=== PATIENT | male | born 1975 | race Caucasian/White ===

== ENCOUNTER 2017-07-14 11:07 | Observation (INO) ==
[2017-07-14] MEDS: 0.45 % SODIUM CHLORIDE 1,000 ML IV SCH ×2 (11:30→22:17)
[2017-07-14 12:15] LABS: Basophils # (Auto) 0 K/mcL (0.0-0.3); Basophils % (Auto) 0.2 % (0.0-2.0); Eosinophils # (Auto) 0.3 K/mcL (0.0-0.7); Eosinophils % (Auto) 4.1 % (0.0-7.0); Granulocytes % (Auto) 81.1 % (38.0-78.0); Lymphocytes # (Auto) 0.8 K/mcL (1.5-4.8); Lymphocytes % (Auto) 9.9 % (15.5-49.0); Mean Cell Volume 83.2 fL (80.0-100.0); Mean Corpuscular HGB Conc 34.7 g/dL (31.0-36.0); Mean Corpuscular Hemoglobin 28.9 pg (26.0-34.0); Monocytes # (Auto) 0.4 K/mcL (0.1-0.9); Monocytes % (Auto) 4.7 % (1.0-12.0); Platelet Count 302 K/mcL (140-440); RBC 4.06 M/mcL (4.50-5.90); Red Cell Distribution Width 12.7 % (11.5-14.5)
[2017-07-14 12:37] LABS: ALT/SGPT 10 U/l (0-40); Albumin 4.2 gm/dL (3.2-5.2); Albumin/Globulin Ratio 1.6 (1.0-2.3); Alkaline Phosphatase 58 U/L (39-117); Bilirubin,Direct < 0.2 mg/dL (0.0-0.3); Blood Urea Nitrogen 19 mg/dl (6-20); Gamma Glutamyl Transpeptidase 32 U/L (8-61)
[2017-07-14] MEDS ORDERED: ACETAMINOPHEN 325 MG TABLET PO PRN (12:55)
[2017-07-14] MEDS ORDERED: DEXTROSE 50% 50 ML VIAL IV PRN ×2 (13:14→20:42)
[2017-07-14] MEDS ORDERED: DEXTROSE 31 GM ORAL.SUSP PO PRN ×2 (13:14→20:42)
[2017-07-14 13:19] LABS: Appearance,Urine CLEAR; Bacteria,Urine 0 /hpf (0); Bilirubin,Urine NEG (NEG); Color,Urine STRAW; Glucose,Urine (UA) >=500 mg/dL (NEG); Leukocyte Esterase,Urine NEG /uL (NEG); Protein,Urine NEG (NEG); Specific Gravity,Urine 1.006 (1.000-1.035); Urine Blood NEG mg/dL (<0.03); Urine RBC 0 /hpf (0-1); Urine Squamous Epithelial Cell < 1 /hpf (0-4); Urine Transitional Epi Cells < 1 /hpf (0-2); Urine WBC < 1 /hpf (0-4); Urobilinogen,Urine NEG (NEG)
[2017-07-14] MEDS: 0.9 % SODIUM CHLORIDE 10 ML SYRINGE IV SCH ×2 (14:20→21:00)
[2017-07-14] MEDS ORDERED: INSULIN LISPRO 1 UNIT/0.01 ML UNIT SQ SCH (17:00)
--- NOTE | 2017-07-14 17:03 | Nephrology Progress Note ---
Subjective Patient information: Note initiated : 07/14/17 at 4:59 pm Service Date, if different from initiated Date: [] Patient: Marcial Yeager 41 y/o M admitted on 07/14/17 for acute renal failure. Chief Complaint: nausea, vomiting Principal diagnosis: Acute renal failure Interval history: Patient is a 41 y/o male who follows with me for his HTN and CKD stage II He was seen on Tuesday this week for acute renal failure when he refused hospitalisation He has been having nausea, vomiting for 2 weeks and unable to eat much but states keep fluids down His blood glucose continued to run high no abdominal pain, no fever, cough no sick contacts no urinary symptoms His serum creatinine repeated showed no significant improvement, he remained tachycardic and given no significant improvement despite improving fluid intake outpt patient was hospitalised and monitoring of his renal function Pertinent ROS: as above Objective - Vital Signs Vital signs: Vital Signs Temp Pulse Resp BP BP Pulse Ox 07/14/17 16:00 99.2 F H 90 16 132/77 97 07/14/17 11:47 100.0 F H 93 H 16 157/94 100 Intake and Output 07/14/17 07/14/17 07/14/17 05:59 13:59 21:59 Output Total 260 / 260 600 / 600 Balance -260 / -260 -600 / -600 Output: Void Amount 260 / 260 600 / 600 Other: Weight 208 lb 8 oz Patient Weight 07/15/17 05:59 Weight 208 lb 8 oz Intake & Output: Intake & Output 07/14/17 07/14/17 07/14/17 05:59 13:59 21:59 Output Total 260 / 260 600 / 600 Balance -260 / -260 -600 / -600 Weight 208 lb 8 oz Output: Void Amount 260 / 260 600 / 600 - General Appearance General appearance: appears started age EENT: mucous membranes dry Neck: no JVD Respiratory: clear Cardiology: no rub, no edema, normal S1, normal S2 Gastrointestinal: no tenderness, no guarding Integumentary: no rash, warm and dry Neurologic: no focal deficit Musculoskeletal: no erythema, no cyanosis, no clubbing Psychiatric: mood/affect appropriate - Lab 07/14/17 11:35 07/14/17 11:35 Most recent lab results Calcium 9.1 mg/dl (8.6-10.4) 07/14/17 11:35 Phosphorus 1.9 mg/dL (2.7-4.5) L 07/14/17 11:35 Magnesium 2.2 mg/dL (1.6-2.5) 07/14/17 11:35 Assessment and Plan (1) Acute renal failure s.creatinine is up from 1.3 at baseline to 2.4-2.3 when last checked 2.2 today US is normal with no proteinuria, hematuria fena is 0.75 with urine sodium less than 20 confirming pre renal state renal imaging done as outpt was negative in the past, if no significant improvement in renal function with IV fluid with repeat will give normal saline 0.45% saline at 100cc /hour non oliguric BP control fair will hold ACEI and spironolactone until renal function back to baseline important for pt to work on optimal DM control last A1C was 11%, intolerance to multiple meds tried by PCP , would recommend glipizide and levemir or lantus or no renal concerns with using these meds Will follow along Appreciate Dr Olivares's help in managing his other medical co morbidities Status: Acute
--- NOTE | 2017-07-14 19:27 | Internal Med History&Physical ---
Medical - H&P: [facility] Patient information: Note initiated : 07/14/17 at 6:51 pm Service Date, if different from initiated Date: [] Patient: Marcial Yeager a 41 y/o M admitted on 07/14/17 for acute renal failure. Chief Complaint: nausea and vomiting History of present illness: Mr. Yeager is a 41 year old M 41-year-old male, with acute on chronic renal failure after [id number] of nausea and vomiting, admitted for IV hydration. He denies abdominal pain, diarrhea and fever. Patient presented with hypertensive urgency in March 2017 when he presented to his PCP to establish care. He had been diagnosed with HTN and DM a few years earlier. He had stopped his Lisinopril and was lost to medical follow-up. SBP was in 240's. Gluc 341 and GFR 68 with Cr 1.3 in ED. In the last few weeks he has been try on several po diabetic meds, including metformin and Jardiance, causing nausea and abdominal discomfort. He was seen by dr Geronimo and diagnosed with CKD stage 2. No etiology for severe HTN (MRI, TSH, metanephrines, cortisol: wnl). FU labs 07/11 showed Cr increase from 1.3 to 2.3 with decreased in GFR to 34. Amylase/lipase: wnl. - Constitutional Constitutional: Present: anorexia - Cardiovascular Cardiovascular: Absent: chest pain, dyspnea, palpatations - Respiratory Respiratory: Absent: cough, dyspnea - Gastrointestinal Gastrointestinal: Present: nausea, vomiting. Absent: abdominal pain, heartburn - Genitourinary Genitourinary: Absent: dysuria Medical - H&P: PMH Medical history: History of tobacco abuse (Chronic) Chlamydia (Chronic) Hypertension, essential (Chronic) DMII (diabetes mellitus, type 2) (Chronic) Surgical history: None Pertinent family history: Positive for DM Social history: Quit smoking. Alcohol consumption: min, every 2 weeks. 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 use FT employed with insurance company Functional capacity: independent ambulation Smoking status: Former smoker Have you smoked in the last 12 months: No Drug use: none Alcohol use: rarely Medical - H&P: Meds Home Medications Medication Instructions Recorded Confirmed Type amlodipine 10 mg tablet 10 mg PO QHS 04/14/17 07/14/17 History spironolactone 50 mg tablet 50 mg PO QDAY #30 tab 04/15/17 07/14/17 Rx blood sugar diagnostic strips See Dose Instructions .ROUTE 04/26/17 07/14/17 Rx .MEDSUPPLY #100 each lancets 33 gauge See Dose Instructions .ROUTE 06/07/17 07/14/17 Rx .MEDSUPPLY #100 each ondansetron HCl 4 mg tablet 4 mg PO Q6H PRN #30 tab 07/11/17 07/14/17 Rx RX: Lisinopril/Hydrochlorothiazide 1 tab PO QHS 07/14/17 07/14/17 History [Zestoretic 10-12.5 mg Tablet] Allergies Allergy/AdvReac Type Severity Reaction Status Date / Time ibuprofen Allergy Severe Facial Verified 07/14/17 11:25 Swelling Medical - H&P: Exam - Constitutional Vitals: Temp Pulse Resp BP Pulse Ox 99.2 F H 90 16 132/77 97 07/14/17 16:00 07/14/17 16:00 07/14/17 16:00 07/14/17 16:00 07/14/17 16:00 General appearance: average body habitus - Head Head exam: Present: normal inspection - Neck Neck exam: Present: normal inspection - Respiratory Respiratory exam: Present: normal respiratory exam - Cardiovascular Cardiovascular exam: Present: normal rate and rhythm - Extremities Exam Extremities exam: Present: normal inspection Medical - H&P: Reslt - Labs CBC & Chem 7: 07/14/17 11:35 07/14/17 11:35 Labs: Short CBC 07/14/17 Range/Units 11:35 WBC 8.5 (4.5-11.0) K/mcL Hgb 11.7 L (13.5-16.5) g/dL Hct 33.8 L (41.0-55.0) % Plt Count 302 (140-440) K/mcL BMP 07/14/17 11:35 Sodium 136 Potassium 4.2 Chloride 98 Carbon Dioxide 24 BUN 19 Creatinine 2.2 H Glucose 258 H Calcium 9.1 Liver Function 07/14/17 Range/Units 11:35 Total Bilirubin 0.4 (0.0-1.0) mg/dL Direct Bilirubin < 0.2 (0.0-0.3) mg/dL GGT 32 (8-61) U/L AST 12 (0-37) U/l ALT 10 (0-40) U/l Alkaline Phosphatase 58 (39-117) U/L Albumin 4.2 (3.2-5.2) gm/dL Urine 07/14/17 Range/Units 13:00 Urine Color Straw Urine Appearance Clear Urine pH 6.0 (5.0-9.0) Ur Specific [place] 1.006 (1.000-1.035) Urine Protein Neg (NEG) mg/dL Urine Glucose (UA) >=500 A (NEG) mg/dL Medical - H&P: A/P - Narrative A/P Narrative: 41-year-old male admitted with following problems: + Nausea and vomiting x 2 weeks. No evidence of infection/gastro-enteritis. Amylase/lipase: wnl May be medication induced as he has been introduced to different anti- hypertensive and diabetic meds within the last few weeks. + Acute on chronic renal failure vs progression of CKD IVF as per dr Geronimo Aldactone and RUSLAN-inh on hold + HTN Difficult to control, requiring multiple drug-regimen No clear etiology found Continue Amlodipine Hydralazine prn + DM with A1C 11.4 Not tolerating po meds Will start Insulin Patient counseled on healthy lifestyle, incl diet, medical compliance and need for regular exercise. Check lipid profile. Will need statin DVT prophylaxis: ambulation Code status: full
[2017-07-14] MEDS ORDERED: hydrALAZINE 10 MG TABLET PO PRN (19:43)
[2017-07-14] MEDS: INSULIN GLARGINE, HUMAN 1 UNIT/0.01 ML SQ SCH (20:59)
[2017-07-14] MEDS: amLODIPine 10 MG TABLET PO SCH (20:59)
[2017-07-14] MEDS: INSULIN LISPRO 1 UNIT/0.01 ML UNIT SQ SCH (21:13)
[2017-07-15] MEDS: ONDANSETRON 4 MG/2 ML VIAL IV PRN ×2 (04:22→10:22)
[2017-07-15 05:20] LABS: Estimated Average Glucose(eAG) 252 mg/dL; Hemoglobin A1C 10.4 % HGB (4.0-6.0)
[2017-07-15 05:22] LABS: Blood Urea Nitrogen 15 mg/dl (6-20); HDL Cholesterol 32 mg/dl (>40); LDL Cholesterol,Calculated 76 mg/dl (SEE CHART)
[2017-07-15] MEDS: 0.9 % SODIUM CHLORIDE 10 ML SYRINGE IV SCH ×3 (05:22→21:31)
[2017-07-15] MEDS ORDERED: POTASSIUM CHLORIDE 20 MEQ TABLET PO ONE (07:28)
[2017-07-15] MEDS: 0.45 % SODIUM CHLORIDE 1,000 ML IV SCH ×2 (08:25→18:41)
[2017-07-15] MEDS: INSULIN LISPRO 1 UNIT/0.01 ML UNIT SQ SCH ×4 (08:28→21:02)
[2017-07-15] MEDS ORDERED: SPIRONOLACTONE 25 MG TABLET PO SCH (09:00)
[2017-07-15] MEDS ORDERED: LISINOPRIL 10 MG TABLET PO SCH (09:00)
[2017-07-15] MEDS ORDERED: FLU VACC QS2017-18 36MOS UP/PF 60 MCG/0.5 ML SYRINGE IM ONE (10:00)
--- NOTE | 2017-07-15 13:24 | Nephrology Progress Note ---
Subjective Patient information: Note initiated : 07/15/17 at 1:19 pm Service Date, if different from initiated Date: [] Patient: Marcial Yeager 41 y/o M admitted on 07/14/17 for Acute Renal Failure. Chief Complaint: [] Principal diagnosis: Acute renal failure Interval history: patient started having nausea again last night and this am no vomiting, drinking only liquids this am no SOB, CP no edema renal function slowly improving with IVF Pertinent ROS: as above Objective - Vital Signs Vital signs: Vital Signs Temp Pulse Resp BP Pulse Ox 07/15/17 11:50 99 F 90 18 143/84 97 07/15/17 08:00 90 07/15/17 07:39 99 F 18 150/84 98 07/15/17 04:00 97.8 F 79 16 146/89 98 07/14/17 23:10 99.2 F H 18 154/94 99 07/14/17 21:26 80 07/14/17 20:03 99.8 F H 89 18 158/90 98 07/14/17 16:00 99.2 F H 90 16 132/77 97 Intake and Output 07/14/17 07/15/17 07/15/17 21:59 05:59 13:59 Intake Total 1920 / 1920 920 / 920 1240 / 1240 Output Total 1275 / 1275 800 / 800 300 / 300 Balance 645 / 645 120 / 120 940 / 940 Intake: IV 1000 / 1000 1000 / 1000 Sodium Chloride 0.45% 1,000 ml 1000 / 1000 1000 / 1000 @ 100 mls/hr IV .Q10H [facility] Rx#: [id number] Oral 920 / 920 920 / 920 240 / 240 Output: Void Amount 1275 / 1275 800 / 800 300 / 300 Other: Meal Dinner sandwich Breakfast Percent of Meal Consumed 100% 100% liquids. Feeding Ability Independent Stool Consistency Formed Liquid # Bowel Movements 1 Weight 206 lb 206 lb Patient Weight 07/16/17 05:59 Weight 206 lb Intake & Output: Intake & Output 07/14/17 07/15/17 07/15/17 21:59 05:59 13:59 Intake Total 1920 / 1920 920 / 920 1240 / 1240 Output Total 1275 / 1275 800 / 800 300 / 300 Balance 645 / 645 120 / 120 940 / 940 Weight 206 lb 206 lb Intake: IV 1000 / 1000 1000 / 1000 Sodium Chloride 0.45% 1,000 ml 1000 / 1000 1000 / 1000 @ 100 mls/hr IV .Q10H [facility] Rx#: [id number] Oral 920 / 920 920 / 920 240 / 240 Output: Void Amount 1275 / 1275 800 / 800 300 / 300 Other: Meal Dinner sandwich Breakfast Percent of Meal Consumed 100% 100% liquids. Feeding Ability Independent Stool Consistency Formed Liquid # Bowel Movements 1 - General Appearance General appearance: appears started age EENT: mucous membranes moist Neck: no JVD Respiratory: clear Cardiology: no edema, normal S1, normal S2 Gastrointestinal: no tenderness, no guarding Integumentary: warm and dry Neurologic: alert and oriented x3 Musculoskeletal: no erythema Psychiatric: mood/affect appropriate - Lab 07/14/17 11:35 07/15/17 04:05 Most recent lab results Calcium 8.7 mg/dl (8.6-10.4) 07/15/17 04:05 Phosphorus 1.9 mg/dL (2.7-4.5) L 07/14/17 11:35 Magnesium 2.2 mg/dL (1.6-2.5) 07/14/17 11:35 Assessment and Plan (1) Acute renal failure acute renal failure from pre renal state from refractory nausea, poor po intake and uncontrolled blood glucose s.creatinine trending down 1.8 today BP control fair just with amlodipine nausea, vomiting? etiology thought is improved blood glucose control on zofran consider gastroenterology referral, has had uncontrolled DM, ? has gastroparesis ct IVF for another day will hold ACEI and diuretics until GI SYMPTOMS resolve reasonable control of HTN, will not add more meds for now dose meds to egfr, avoid nephrotoxic meds will follow along Status: Acute
--- NOTE | 2017-07-15 14:57 | Internal Med Progress Note ---
Medical - PN: Subj Patient information: Note initiated : 07/15/17 at 2:54 pm Service Date, if different from initiated Date: [] Patient: Marcial Yeager a 41 y/o M admitted on 07/14/17 for Acute Renal Failure. Mr. Yeager is a 41 year old M 41-year-old male, with acute on chronic renal failure after [id number] of nausea and vomiting, admitted for IV hydration. He denies abdominal pain, diarrhea and fever. Patient presented with hypertensive urgency in March 2017 when he presented to his PCP to establish care. He had been diagnosed with HTN and DM a few years earlier. He had stopped his Lisinopril and was lost to medical follow-up. SBP was in 240's. Gluc 341 and GFR 68 with Cr 1.3 in ED. In the last few weeks he has been try on several po diabetic meds, including metformin and Jardiance, causing nausea and abdominal discomfort. He was seen by dr Geronimo and diagnosed with CKD stage 2. No etiology for severe HTN (MRI, TSH, metanephrines, cortisol: wnl). FU labs 07/11 showed Cr increase from 1.3 to 2.3 with decreased in GFR to 34. Amylase/lipase: wnl 07/14: Admitted for IV hydration, BP and DM control 07/15: Nausea, mainly in am. Had hamburger last night without vomiting. Will start ondansetron po ACHS Start diabetic teaching, self-administration of insulin etc. - Constitutional Vitals: Vital Signs Temp Pulse Resp BP Pulse Ox 99 F 90 18 143/84 97 07/15/17 12:00 07/15/17 12:00 07/15/17 12:00 07/15/17 12:00 07/15/17 12:00 Period Temp Pulse Resp BP Sys/Mcmullen Pulse Ox Last 24 Hr 97.8 F-99.8 F 79-90 16-18 132-158/77-94 97-99 Intake and Output 07/15/17 07/15/17 07/15/17 05:59 13:59 21:59 Intake Total 920 / 920 1240 / 1240 400 / 400 Output Total 800 / 800 300 / 300 850 / 850 Balance 120 / 120 940 / 940 -450 / -450 Weight 206 lb Patient Weight 03/03/18 05:59 Weight 206 lb Intake & Output: Intake & Output 07/15/17 07/15/17 07/15/17 05:59 13:59 21:59 Intake Total 920 / 920 1240 / 1240 400 / 400 Output Total 800 / 800 300 / 300 850 / 850 Balance 120 / 120 940 / 940 -450 / -450 Weight 206 lb Intake: IV 1000 / 1000 Sodium Chloride 0.45% 1,000 ml 1000 / 1000 @ 100 mls/hr IV .Q10H [facility] Rx#: [id number] Oral 920 / 920 240 / 240 400 / 400 Output: Void Amount 800 / 800 300 / 300 850 / 850 Other: Meal sandwich Breakfast Lunch Percent of Meal Consumed 100% liquids. 100% Feeding Ability Independent Independent General appearance: no acute distress - Respiratory Respiratory exam: Present: normal respiratory exam - Cardiovascular Cardiovascular exam: Present: normal rate and rhythm - GI/Abdominal GI/Abdominal exam: Present: normal bowel sounds, soft Medical - PN: Obj Da - Labs CBC & Chem 7: 07/14/17 11:35 07/15/17 04:05 Labs: Abnormal Lab Results 07/15/17 07/14/17 07/14/17 04:05 13:00 11:35 RBC Hgb Hct Gran % Lymph % (Auto) Lymph # (Auto) Creatinine 1.8 H 2.2 H Glucose 141 H 258 H Hemoglobin A1c 10.4 H Phosphorus 1.9 L Triglycerides 171 H 214 H HDL Cholesterol 32 L Urine Glucose (UA) >=500 A 07/14/17 11:35 RBC 4.06 L Hgb 11.7 L Hct 33.8 L Gran % 81.1 H Lymph % (Auto) 9.9 L Lymph # (Auto) 0.8 L Creatinine Glucose Hemoglobin A1c Phosphorus Triglycerides HDL Cholesterol Urine Glucose (UA) Meds: Medications Acetaminophen (Tylenol) 650 mg PO Q6HP PRN PRN Reason: PAIN/FEVER > 101 Amlodipine Besylate (Norvasc) 10 mg PO QHS [facility] Last Admin: 07/14/17 20:59 Dose: 10 mg Dextrose (Dextrose 50%) 0 ml IV UD PRN PRN Reason: Hypoglycemia Dextrose (Dextrose 50%) 0 ml IV UD PRN PRN Reason: Hypoglycemia Diagnostic Test (Pha) (Accu-Chek) 1 each FS ACHS [facility] Last Admin: 07/15/17 11:53 Dose: 1 each Glucose (Insta-Glucose) 15 gm PO PRN PRN PRN Reason: Hypoglycemia Glucose (Insta-Glucose) 15 gm PO PRN PRN PRN Reason: Hypoglycemia Hydralazine HCl (Apresoline) 10 mg PO Q4HP PRN PRN Reason: Hypertension Sodium Chloride (Sodium Chloride 0.45%) 1,000 mls @ 100 mls/hr IV .Q10H [facility] Last Admin: 07/15/17 08:25 Dose: 100 mls/hr Insulin Glargine (Lantus) 10 unit SQ HS [facility] Last Admin: 07/14/17 20:59 Dose: 10 unit Insulin Human Lispro (Humalog) 0 unit SQ ACHS [facility] PRN Reason: Protocol Last Admin: 07/15/17 11:53 Dose: 2 unit Ondansetron HCl (Zofran) 4 mg IV Q6HP PRN PRN Reason: Nausea And Vomiting Last Admin: 07/15/17 10:22 Dose: 4 mg Ondansetron HCl (Zofran Odt) 4 mg SL [facility] Sodium Chloride (Saline Flush) 10 ml IV Q8 [facility] Last Admin: 07/15/17 14:19 Dose: Not Given Medical - PN: A/P - Time Spent With Patient Total time spent is greater than 50% in coordination of care (as documented) at patient's floor/unit and/or counseling patient: less than 15 minutes - Narrative A/P Narrative: A/P Narrative: 41-year-old male admitted with following problems: + Nausea and vomiting x 2 weeks. No evidence of infection/gastro-enteritis. Amylase/lipase: wnl May be medication induced as he has been introduced to different anti- hypertensive and diabetic meds within the last few weeks. + Acute on chronic renal failure vs progression of CKD IVF as per dr Geronimo Aldactone and RUSLAN-inh on hold + HTN Difficult to control, requiring multiple drug-regimen No clear etiology found Continue Amlodipine Hydralazine prn + DM with A1C 11.4 Not tolerating po meds Will start Insulin Patient counseled on healthy lifestyle, incl diet, medical compliance and need for regular exercise. Check lipid profile. Will need statin PLAN: Zofran po ACHS Diabetic teaching DVT prophylaxis: ambulation Code status: full
[2017-07-15] MEDS: ONDANSETRON ODT 4 MG TABLET SL SCH ×2 (16:46→21:01)
[2017-07-15] MEDS: INSULIN GLARGINE, HUMAN 1 UNIT/0.01 ML SQ SCH (21:01)
[2017-07-15] MEDS: amLODIPine 10 MG TABLET PO SCH (21:01)
[2017-07-16] MEDS: 0.45 % SODIUM CHLORIDE 1,000 ML IV SCH (04:23)
[2017-07-16] MEDS: 0.9 % SODIUM CHLORIDE 10 ML SYRINGE IV SCH ×2 (05:01→14:00)
[2017-07-16] MEDS: ONDANSETRON ODT 4 MG TABLET SL SCH ×2 (07:15→11:55)
[2017-07-16] MEDS: INSULIN LISPRO 1 UNIT/0.01 ML UNIT SQ SCH ×2 (08:12→11:54)
[2017-07-16 09:21] LABS: ALT/SGPT 11 U/l (0-40); Albumin 4.4 gm/dL (3.2-5.2); Albumin/Globulin Ratio 1.6 (1.0-2.3); Alkaline Phosphatase 59 U/L (39-117); Bilirubin,Direct < 0.2 mg/dL (0.0-0.3); Blood Urea Nitrogen 12 mg/dl (6-20); Gamma Glutamyl Transpeptidase 29 U/L (8-61); Uric Acid 6.4 mg/dL (2.5-8.0)
--- NOTE | 2017-07-16 12:53 | Nephrology Progress Note ---
Subjective Patient information: Note initiated : 07/16/17 at 12:48 pm Service Date, if different from initiated Date: [] Patient: Marcial Yeager 41 y/o M admitted on 07/14/17 for Acute Renal Failure. Chief Complaint: [] Principal diagnosis: Acute renal failure Interval history: no new issues nausea controlled with zofran Blood pressure and blood glucose readings stable.improved S.creatinine trending down though slowly no edema, denies SOB, CP, dizziness no urinary symptoms Pertinent ROS: as above Objective - Vital Signs Vital signs: Vital Signs Temp Pulse Resp BP Pulse Ox 07/16/17 11:14 98.2 F 16 145/82 98 07/16/17 06:48 98.7 F 16 139/81 99 07/16/17 04:00 97.8 F 85 16 154/92 100 07/15/17 23:02 98.4 F 72 14 140/86 100 07/15/17 19:36 98.2 F 80 14 132/82 100 07/15/17 15:54 98.9 F 16 148/84 100 Intake and Output 07/15/17 07/16/17 07/16/17 21:59 05:59 13:59 Intake Total 1999 1610 / 1610 Output Total 1999 1025 / 1025 1675 / 1675 Balance 0 / 0 585 / 585 -1675 / -1675 Intake: IV 1000 / 1000 970 / 970 Sodium Chloride 0.45% 1,000 ml 1000 / 1000 970 / 970 @ 100 mls/hr IV .Q10H [facility] Rx#: [id number] Oral 1000 / 1000 640 / 640 Output: Void Amount 1999 1025 / 1025 1675 / 1675 Other: Meal Dinner Percent of Meal Consumed 100% Feeding Ability Independent Stool Consistency Loose # Voids 1 Weight 211 lb 6.4 oz Intake & Output: Intake & Output 07/15/17 07/16/17 07/16/17 21:59 05:59 13:59 Intake Total 1999 1610 / 1610 Output Total 1999 1025 / 1025 1675 / 1675 Balance 0 / 0 585 / 585 -1675 / -1675 Weight 211 lb 6.4 oz Intake: IV 1000 / 1000 970 / 970 Sodium Chloride 0.45% 1,000 ml 1000 / 1000 970 / 970 @ 100 mls/hr IV .Q10H [facility] Rx#: [id number] Oral 999 / 999 640 / 640 Output: Void Amount 1999 1025 / 1025 1675 / 1675 Other: Meal Dinner Percent of Meal Consumed 100% Feeding Ability Independent Stool Consistency Loose # Voids 1 - General Appearance General appearance: appears started age EENT: mucous membranes moist Neck: no JVD Respiratory: clear Cardiology: no edema, normal S1, normal S2 Gastrointestinal: no tenderness, no guarding Integumentary: no rash, warm and dry Neurologic: alert and oriented x3 Musculoskeletal: no erythema, no cyanosis Psychiatric: mood/affect appropriate - Lab 07/14/17 11:35 07/16/17 08:30 Most recent lab results Calcium 9.1 mg/dl (8.6-10.4) 07/16/17 08:30 Phosphorus 2.8 mg/dL (2.7-4.5) 07/16/17 08:30 Magnesium 2.0 mg/dL (1.6-2.5) 07/16/17 08:30 Assessment and Plan (1) Acute renal failure s.creatinine is down to 1.7 from 2.4 at peak slowly improving explained to the patient unclear if it improve back to baseline given uncontrolled DM explained need to work on optimal DM and HTN control patient will be discharged on lantus and lispro, will eventually transition to glipizide and ct lantus will continue amlodipine for HTN and hold ACEI and diuretics until GI symptoms resolve, he will need another medication for optimal HTN control, explained to the patient ensure no NSAIDS to be used ensure you stay hydrated monitor BP and blood glucose please call if any concerns keep appointment next week Status: Acute
--- NOTE | 2017-07-16 13:19 | Discharge Summary ---
Medical - DS: Prov Patient information: Note initiated : 07/16/17 at 12:51 pm Service Date, if different from initiated Date: [] Patient: Marcial Yeager 41 y/o M admitted on 07/14/17 for Acute Renal Failure. Date of admission: 07/14/17 11:16 Discharge date: 07/16/17 Primary care physician: Babatunde May Medical - DS: Meds - Discharge Medications Prescriptions: Dextrose [Insta-Glucose] 15 gm PO PRN PRN #30 oral.susp PRN Reason: Hypoglycemia Insulin Glargine, Human [Lantus] 10 unit SQ HS #1 unit Insulin Lispro [Humalog] See Protocol SQ ACHS #1 unit Active and Home Medications: Home Medications amlodipine 10 mg tablet 10 mg PO QHS 04/14/17 [History Confirmed 07/14/17 Last Taken 07/13/17 20:00] spironolactone 50 mg tablet 50 mg PO QDAY #30 tab 04/15/17 [Rx Confirmed Last Taken 06/30/17] blood sugar diagnostic strips See Dose Instructions .ROUTE .MEDSUPPLY #100 each 04/26/17 [Rx Confirmed 07/14/17 Last Taken Unknown] lancets 33 gauge See Dose Instructions .ROUTE .MEDSUPPLY #100 each 06/07/17 [Rx Confirmed 07/14/17 Last Taken Unknown] ondansetron HCl 4 mg tablet 4 mg PO Q6H PRN #30 tab 07/11/17 [Rx Confirmed 07/14 Last Taken 07/13/17 16:30] Lisinopril/Hydrochlorothiazide [Zestoretic 10-12.5 mg Tablet] 1 tab PO QHS 07/14 [History Confirmed 07/14/17 Last Taken 07/09/17] Medical - DS: Hosp Hospital course: Patient: Marcial Yeager 41 y/o M admitted on 07/14/17 for Acute Renal Failure. Mr. Yeager is a 41 year old M 41-year-old male, with acute on chronic renal failure after [id number] of nausea and vomiting, admitted for IV hydration. He denies abdominal pain, diarrhea and fever. Patient presented with hypertensive urgency in March 2017 when he presented to his PCP to establish care. He had been diagnosed with HTN and DM a few years earlier. He had stopped his Lisinopril and was lost to medical follow-up. SBP was in 240's. Gluc 341 and GFR 68 with Cr 1.3 in ED. In the last few weeks he has been try on several po diabetic meds, including metformin and Jardiance, causing nausea and abdominal discomfort. He was seen by dr Geronimo and diagnosed with CKD stage 2. No etiology for severe HTN (MRI, TSH, metanephrines, cortisol: wnl). FU labs 07/11 showed Cr increase from 1.3 to 2.3 with decreased in GFR to 34. Amylase/lipase: wnl 07/14: Admitted for IV hydration, BP and DM control 07/15: Nausea, mainly in am. Had hamburger last night without vomiting. Will start ondansetron po ACHS Start diabetic teaching, self-administration of insulin etc. 07/16: Nausea controlled. Has been eating his meals without problems. Diabetic teaching done, incl self-administration of insulin. For discharge home. FU with dr Geronimo. Discharge diagnosis: Acute on chronic renal failure Secondary discharge diagnosis: DM, poorly controlled Nausea HTN Reason for admission: Acute on chronic renal failure, persistent nausea - Time Spent with Patient Total time spent providing and/or coordinating discharge services: Greater than 30 minutes Medical - DS: Exam - Constitutional Vitals: Vital Signs Temp Pulse Resp BP Pulse Ox 07/16/17 11:14 98.2 F 16 145/82 98 07/16/17 06:48 98.7 F 16 139/81 99 07/16/17 04:00 97.8 F 85 16 154/92 100 07/15/17 23:02 98.4 F 72 14 140/86 100 07/15/17 19:36 98.2 F 80 14 132/82 100 07/15/17 15:54 98.9 F 16 148/84 100 Intake and Output 07/15/17 07/16/17 07/16/17 21:59 05:59 13:59 Intake Total 1999 1610 / 1610 Output Total 1999 1025 / 1025 1675 / 1675 Balance 0 / 0 585 / 585 -1675 / -1675 Intake: IV 1000 / 1000 970 / 970 Sodium Chloride 0.45% 1,000 ml 1000 / 1000 970 / 970 @ 100 mls/hr IV .Q10H COMFORT Rx#: [id number] Oral 1000 / 1000 640 / 640 Output: Void Amount 1999 1025 / 1025 1675 / 1675 Other: Meal Dinner Percent of Meal Consumed 100% Feeding Ability Independent Stool Consistency Loose # Voids 1 Weight 211 lb 6.4 oz Medical - DS: Data Labs on day of discharge: Labs from last 24 hours 07/16/17 08:30 Sodium 136 Potassium 3.6 Chloride 99 Carbon Dioxide 27 Anion Gap 10.0 BUN 12 Creatinine 1.7 H GFR Calculation 49 Glucose 152 H Uric Acid 6.4 Calcium 9.1 Phosphorus 2.8 Magnesium 2.0 Total Bilirubin 0.4 Direct Bilirubin < 0.2 GGT 29 AST 13 ALT 11 Alkaline Phosphatase 59 Lactate Dehydrogenase 123 Total Protein 7.2 Albumin 4.4 Globulin 2.8 Albumin/Globulin Ratio 1.6 Triglycerides 169 H Medical - DS: A/P - Patient/Caregiver Discharge Instructions Activity: resume usual activities as tolerated Diet: Consistent Carbohydrate Additional Instructions: Do not use NSAIDS for pain control Make sure you stay hydrated monitor BP Check blood sugars at least 3 times daily and document. If nauseated, or not feeling well, check BS. Check weight weekly. Discuss with your medical provider if you gain significant weight please call dr Geronimo or dr May if any concerns keep appointment with dr Geronimo next week - Follow up Plan Disposition: Home, Self-Care Prognosis: Fair Rehab Potential: Good Overall status at discharge: patient is back to baseline
--- NOTE | 2017-07-16 16:41 | Ultrasound Report ---
CLINICAL INFORMATION: Acute renal failure COMPARISON: Abdominal MRI from 04/19/2017 FINDINGS: Both kidneys are normal and symmetric in size, position, configuration and echotexture: The right is 11 x 6 cm and the left is 11 x 6 cm. A 8 mm simple cyst is seen in the inferior pole the right kidney. No solid lesions, stone or hydronephrosis. Arterial blood low is grossly normal on color Doppler Urinary bladder volume is 91 cc with 24 cc post void residual. No focal bladder lesions. Prostate volume is normal - 8 cc IMPRESSION: Normal Interpreted and Authenticated by: Babatunde Paniagua 07/16/17
== END 2017-07-16 15:15 | disposition home or self-care (01) ==
LOC: INTOOBSV 11:16 → MEDSUR 11:16
PROVIDERS: ADMIT Specialist; ATTEND Specialist